=== PATIENT | female | born 1950 | race Two or more races ===

== ENCOUNTER 2017-11-20 07:19 | Outpatient (CLI) | payer OTHER ==
[~2017-11-20 07:19] MED LIST: ALLOPURINOL; ASA81 MG; CLOPIDOGREL BIS75 MG PO; CORRECTOL5 MG; COUMADIN10 MG; COUMADIN2 MG; COZAAR100 MG; DILTIAZEM 24HR180 MG; DILTIAZEM 24HR180 MG PO; FERROUSUL325 ( 65 ); FERROUSUL325 ( 65 ) PO; FOLIC ACID1 MG; HYDRALAZINE HCL25 MG; HYDRALAZINE HCL25 MG PO; LASIX20 MG; LASIX40 MG PO; LEVOTHYROXINE50 MCG; LIPITOR40 MG; LOSARTAN POTAS100 MG PO; METFORMIN HCL1000 M1; PLAVIX75 MG; PRILOSEC OTC20 MG; SINGULAIR10 MG; ZANTAC150 M3
== END 2017-11-20 07:27 | disposition home or self-care (01) ==
LOC: TOM 07:19
DX: K56.50 Intestinal adhesions [bands], unspecified as to partial versus complete obstruction (principal); K56.699 Other intestinal obstruction unspecified as to partial versus complete obstruction; E61.1 Iron deficiency

== ENCOUNTER 2018-01-01 08:11 | Outpatient (CLI) | payer OTHER | END 2018-01-01 08:25 | disposition home or self-care (01) | LOC: NUCLEAR 08:11 | DX: I26.99 Other pulmonary embolism without acute cor pulmonale (principal); I27.29 Other secondary pulmonary hypertension; J43.2 Centrilobular emphysema; R06.02 Shortness of breath | CPT/HCPCS: 78580; A9540 ==

== ENCOUNTER 2018-01-03 07:39 | Outpatient (CLI) | payer OTHER | END 2018-01-03 07:40 | disposition home or self-care (01) | LOC: NUCLEAR 07:39 | DX: I26.99 Other pulmonary embolism without acute cor pulmonale (principal); J43.2 Centrilobular emphysema; R06.02 Shortness of breath; I27.29 Other secondary pulmonary hypertension | CPT/HCPCS: 78579; A9567 ==

== ENCOUNTER 2021-03-21 09:56 | Emergency (ER) | payer OTHER ==
[~2021-03-21] VITALS: Ht 160 cm; Wt 78.0 kg
[2021-03-21] MEDS ORDERED: CLEOCIN HCL300 MG PO (10:28)
== END 2021-03-21 12:04 | disposition home or self-care (01) ==
LOC: ER 09:56
DX: S80.811A Abrasion, right lower leg, initial encounter (principal); W22.8XXA Striking against or struck by other objects, initial encounter; Y93.89 Activity, other specified; Y92.89 Other specified places as the place of occurrence of the external cause; Y99.8 Other external cause status

== ENCOUNTER 2022-04-07 08:42 | Outpatient (CLI) | payer OTHER ==
[~2022-04-07 08:42] MED LIST changes: +CLEOCIN HCL300 MG PO
== END 2022-04-07 08:45 | disposition home or self-care (01) ==
LOC: RX STUDY 08:42
DX: R10.13 Epigastric pain (principal)